=== PATIENT | female | born 1945 | race African-American/Black ===

== ENCOUNTER 2022-12-22 11:28 | Inpatient (IN) | payer MEDICARE, OTHER ==
[~2022-12-22] VITALS: Ht 170.2 cm; Wt 151.5 kg
[2022-12-22 12:25] LABS: HEMATOCRIT. 36.3 % (36.0-48.0); HEMOGLOBIN. 11.6 g/dL (12.0-16.0); MEAN CORPUSCULAR HEMOGLOBIN 25.3 pg (28.0-32.0); MEAN PLATELET VOLUME 9.8 fl (7.4-10.4); PLATELET 186 x1000/uL (130-400); RED BLOOD CELL COUNT 4.59 mill/uL (4.2-5.4); RED CELL DISTRIBUTION WIDTH 17.6 % (11.6-14.6)
[2022-12-22 12:31] LABS: CHLORIDE 103 mEq/L (98-107)
[2022-12-22 12:42] LABS: ETHANOL BLOOD < 10 mg/dL
[2022-12-22] MEDS ORDERED: VANCOMYCIN 1G PREMIX 200 ML IV ONE (12:45)
[2022-12-22] MEDS ORDERED: PIPERACILLIN/TAZ 3.375G PREMIX 50 ML IV ONE (12:45)
[2022-12-22 12:57] LABS: INR 1.2; PROTHROMBIN TIME 12.4 sec (9.6-11.0)
[2022-12-22 13:03] LABS: PLATELET ESTIMATE NORMAL
[2022-12-22] MEDS ORDERED: IOHEXOL-350 100 ML BOTTLE ONE (13:18)
[2022-12-22] MEDS ORDERED: LORAZEPAM 0.5MG TABLET PO PRN (14:00)
[2022-12-22] MEDS ORDERED: DOCUSATE SODIUM 100MG CAPSULE PO PRN (14:00)
[2022-12-22] MEDS ORDERED: IPRATROPIUM/ALBUTEROL 0.5-3(2.5)MG/3ML NEB HHN PRN (14:00)
[2022-12-22] MEDS ORDERED: ACETAMINOPHEN 325MG TABLET PO PRN (14:00)
[2022-12-22] MEDS ORDERED: ONDANSETRON HCL 4MG/2ML INJ IV PRN (14:00)
[2022-12-22] MEDS ORDERED: VANCOMYCIN 1.25GM PMX (XELLIA) 250 ML IV SCH (15:00)
[2022-12-22 15:48] VITALS: BP 138/77
[2022-12-22 16:01] VITALS: BP 138/77
[2022-12-22 20:00] VITALS: BP 119/64
[2022-12-22] MEDS: ACETAMINOPHEN 325MG TABLET PO PRN (22:42)
[2022-12-22] MEDS: PIPERACILLIN/TAZOBACTAM 3.375 G in DEXTROSE 5% WATER 50 ML IV SCH (23:03)
[2022-12-23] VITALS: BP 99/51
[2022-12-23 04:00] VITALS: BP 105/58
[2022-12-23] MEDS: PIPERACILLIN/TAZOBACTAM 3.375 G in DEXTROSE 5% WATER 50 ML IV SCH ×4 (06:21→23:01)
[2022-12-23 08:00] VITALS: BP 107/64
[2022-12-23 12:00] VITALS: BP 142/65
[2022-12-23] MEDS ORDERED: VANCOMYCIN 1.25GM PMX (XELLIA) 250 ML IV SCH (12:00)
[2022-12-23] MEDS: ENOXAPARIN 40MG/0.4ML SYR SUBCUT SCH ×2 (12:43→23:01)
[2022-12-23 16:00] VITALS: BP 106/54
[2022-12-23 16:14] LABS: HEMATOCRIT. 30.9 % (36.0-48.0); HEMOGLOBIN. 9.7 g/dL (12.0-16.0); MEAN CORPUSCULAR VOLUME 79.5 fL (81.0-99.0); MEAN PLATELET VOLUME 8.9 fl (7.4-10.4); PLATELET 156 x1000/uL (130-400); RED BLOOD CELL COUNT 3.89 mill/uL (4.2-5.4); RED CELL DISTRIBUTION WIDTH 18.1 % (11.6-14.6)
[2022-12-23] MEDS: ACETAMINOPHEN 325MG TABLET PO PRN (16:30)
[2022-12-23 17:14] LABS: CLARITY URINE CLOUDY (CLEAR); COLOR URINE DARK YELLOW (YELLOW); KETONES URINE TRACE (NEGATIVE); LEUKOCYTE ESTERASE URINE NEGATIVE (NEGATIVE); NITRITE URINE NEGATIVE (NEGATIVE); OCCULT BLOOD URINE NEGATIVE (NEGATIVE); PROTEIN URINE 1+ (NEGATIVE); UROBILINOGEN URINE 0.2 E.U./dL (0.2-1.0)
[2022-12-23 17:28] LABS: *AMPHETAMINES SCREEN URINE NEGATIVE (NEGATIVE); *BARBITURATES SCREEN URINE NEGATIVE (NEGATIVE); *BENZODIAZEPINES SCREEN URINE NEGATIVE (NEGATIVE); *COCAINE SCREEN URINE NEGATIVE (NEGATIVE); CANNABINOID URINE SCREEN NEGATIVE (NEGATIVE); METHADONE URINE SCREEN NEGATIVE (NEGATIVE); OPIATES URINE SCREEN NEGATIVE (NEGATIVE); PHENCYCLIDINE URINE SCREEN NEGATIVE (NEGATIVE)
[2022-12-23 18:22] LABS: PLATELET ESTIMATE NORMAL
[2022-12-23 20:00] VITALS: BP 107/65
[2022-12-24] VITALS: BP 114/60
[2022-12-24 04:00] VITALS: BP 130/76
[2022-12-24] MEDS: PIPERACILLIN/TAZOBACTAM 3.375 G in DEXTROSE 5% WATER 50 ML IV SCH (06:10)
[2022-12-24 08:00] VITALS: BP 135/60
[2022-12-24] MEDS: ENOXAPARIN 40MG/0.4ML SYR SUBCUT SCH (09:47)
[2022-12-24 12:00] VITALS: BP 131/76
[2022-12-24] MEDS ORDERED: CEFAZOLIN 1000MG PREMIX 50 ML IV SCH (12:00)
[2022-12-24] MEDS ORDERED: LIDOCAINE HCL 1% 10 MG/ML 10ML VIAL ONE (13:22)
[2022-12-24] MEDS: CEFAZOLIN 2000MG in DEXTROSE 5% WATER 100ML IV SCH ×2 (15:08→21:42)
[2022-12-24 16:00] VITALS: BP 130/74
[2022-12-24] MEDS: ENOXAPARIN 150MG/ML SYR SUBCUT SCH (18:58)
[2022-12-24 20:00] VITALS: BP 106/46
[2022-12-24] MEDS: PANTOT AC/MIN OIL/PET HY-PHL OINT (AQUAPHOR) TOP SCH (21:44)
[2022-12-24 22:03] LABS: MEAN CORPUSCULAR HEMOGLOBIN 25.6 pg (28.0-32.0); MEAN CORPUSCULAR VOLUME 80.3 fL (81.0-99.0); PLATELET 131 x1000/uL (130-400); RED BLOOD CELL COUNT 2.76 mill/uL (4.2-5.4); RED CELL DISTRIBUTION WIDTH 17.7 % (11.6-14.6)
[2022-12-24 22:14] LABS: HEMATOCRIT 22.1 % (36.0-48.0)
[2022-12-25] VITALS (11 sets, daily range): BP systolic 102–140; BP diastolic 46–79
[2022-12-25] MEDS ORDERED: WATER IV ONE (00:45)
[2022-12-25] MEDS ORDERED: DEXT 5% IV ONE (00:45)
[2022-12-25] MEDS ORDERED: MAGNESIUM SULFATE IV ONE (00:45)
[2022-12-25] MEDS ORDERED: MAGNESIUM 4 G PREMIX 100 ML IV NR (01:00)
[2022-12-25] MEDS: ACETAMINOPHEN 325MG TABLET PO PRN ×2 (04:02→21:02)
[2022-12-25] MEDS: CEFAZOLIN 2000MG in DEXTROSE 5% WATER 100ML IV SCH ×3 (05:25→21:02)
[2022-12-25] MEDS: ENOXAPARIN 150MG/ML SYR SUBCUT SCH (05:30)
[2022-12-25] MEDS: PANTOT AC/MIN OIL/PET HY-PHL OINT (AQUAPHOR) TOP SCH (08:23)
[2022-12-25 08:47] LABS: MEAN CORPUSCULAR HEMOGLOBIN 26.3 pg (28.0-32.0); MEAN PLATELET VOLUME 9.5 fl (7.4-10.4); PLATELET 87 x1000/uL (130-400); RED BLOOD CELL COUNT 2.43 mill/uL (4.2-5.4); RED CELL DISTRIBUTION WIDTH 17.3 % (11.6-14.6)
[2022-12-25 08:57] LABS: HEMATOCRIT. 19.4 % (36.0-48.0); HEMOGLOBIN. 6.4 g/dL (12.0-16.0)
[2022-12-25 09:10] LABS: CHLORIDE 103 mEq/L (98-107)
[2022-12-25 14:01] LABS: TOTAL IRON BINDING CAPACITY 221 ug/dL (250-450)
[2022-12-25 21:02] LABS: HEMATOCRIT 30.4 % (36.0-48.0)
[2022-12-25 22:15] LABS: PLATELET ESTIMATE DECREASED
[2022-12-26] VITALS: BP 133/73
[2022-12-26 04:00] VITALS: BP 151/84
[2022-12-26 08:00] VITALS: BP 140/76
[2022-12-26] MEDS: CEFAZOLIN 2000MG in DEXTROSE 5% WATER 100ML IV SCH ×3 (08:47→21:35)
[2022-12-26] MEDS: PANTOT AC/MIN OIL/PET HY-PHL OINT (AQUAPHOR) TOP SCH (08:58)
[2022-12-26] MEDS: FERROUS SULFATE 325MG TABLET PO SCH ×2 (11:50→18:16)
[2022-12-26 12:00] VITALS: BP 153/67
[2022-12-26 16:00] VITALS: BP 137/80
[2022-12-26 20:00] VITALS: BP 130/67
[2022-12-27] VITALS: BP 124/79
[2022-12-27 04:00] VITALS: BP 130/61
[2022-12-27 05:42] LABS: BASOPHILS % 0.6 % (0.0-2.0); EOSINOPHILS % 5.7 % (0.0-5.0); HEMATOCRIT. 29.6 % (36.0-48.0); HEMOGLOBIN. 9.9 g/dL (12.0-16.0); LYMPHOCYTES % 10.8 % (20.0-50.0); MEAN CORPUSCULAR HEMOGLOBIN 26.5 pg (28.0-32.0); MEAN CORPUSCULAR VOLUME 79.4 fL (81.0-99.0); MEAN PLATELET VOLUME 9.3 fl (7.4-10.4); MONOCYTES % 12.1 % (2.0-8.0); NEUTROPHILS % 70.8 % (40.0-76.0); PLATELET 195 x1000/uL (130-400); RED BLOOD CELL COUNT 3.73 mill/uL (4.2-5.4); RED CELL DISTRIBUTION WIDTH 17.8 % (11.6-14.6)
[2022-12-27 06:00] LABS: CHLORIDE 108 mEq/L (98-107)
[2022-12-27] MEDS: CEFAZOLIN 2000MG in DEXTROSE 5% WATER 100ML IV SCH ×3 (06:33→21:52)
[2022-12-27 08:00] VITALS: BP 162/79
[2022-12-27] MEDS: FERROUS SULFATE 325MG TABLET PO SCH ×2 (08:02→12:21)
[2022-12-27] MEDS: PANTOT AC/MIN OIL/PET HY-PHL OINT (AQUAPHOR) TOP SCH (08:02)
[2022-12-27 12:00] VITALS: BP 137/86
[2022-12-27] MEDS: SODIUM CHLORIDE 0.9% 1,000 ML IV SCH ×2 (12:22→19:50)
[2022-12-27 16:00] VITALS: BP 126/87
[2022-12-27 17:52] LABS: VITAMIN B12 SERUM 436 pg/mL (211-911)
[2022-12-27] MEDS: PANTOPRAZOLE SODIUM 40 MG/VIAL IV SCH (18:57)
[2022-12-27 19:33] LABS: FERRITIN 226 ng/mL (10-291)
[2022-12-27 20:00] VITALS: BP 171/78
[2022-12-27 21:12] LABS: HEMATOCRIT 30.1 % (36.0-48.0); HEMOGLOBIN 9.9 g/dL (12.0-16.0)
[2022-12-28] VITALS (7 sets, daily range): BP systolic 151–163; BP diastolic 70–90
[2022-12-28] MEDS: SODIUM CHLORIDE 0.9% 1,000 ML IV SCH ×2 (01:05→06:29)
[2022-12-28 02:14] LABS: HEMATOCRIT 29.9 % (36.0-48.0); HEMOGLOBIN 9.9 g/dL (12.0-16.0)
[2022-12-28] MEDS: PANTOPRAZOLE SODIUM 40 MG/VIAL IV SCH ×2 (03:46→17:18)
[2022-12-28 06:18] LABS: BASOPHILS % 0.6 % (0.0-2.0); EOSINOPHILS % 6.2 % (0.0-5.0); HEMATOCRIT. 29.9 % (36.0-48.0); HEMOGLOBIN. 9.9 g/dL (12.0-16.0); LYMPHOCYTES % 14.2 % (20.0-50.0); MEAN CORPUSCULAR HEMOGLOBIN 26.4 pg (28.0-32.0); MEAN PLATELET VOLUME 9.5 fl (7.4-10.4); MONOCYTES % 11.6 % (2.0-8.0); NEUTROPHILS % 67.4 % (40.0-76.0); PLATELET 220 x1000/uL (130-400); RED BLOOD CELL COUNT 3.73 mill/uL (4.2-5.4); RED CELL DISTRIBUTION WIDTH 17.9 % (11.6-14.6)
[2022-12-28] MEDS: CEFAZOLIN 2000MG in DEXTROSE 5% WATER 100ML IV SCH ×3 (06:28→23:03)
[2022-12-28 08:27] LABS: CHLORIDE 110 mEq/L (98-107)
[2022-12-28] MEDS: IRON SUCROSE COMPLEX 100 MG/5 ML ML IV SCH (10:03)
[2022-12-28] MEDS: PANTOT AC/MIN OIL/PET HY-PHL OINT (AQUAPHOR) TOP SCH (10:03)
[2022-12-28 16:45] LABS: HEMATOCRIT 33.2 % (36.0-48.0); HEMOGLOBIN 10.8 g/dL (12.0-16.0)
[2022-12-28] MEDS: CLONIDINE 0.1MG TABLET PO PRN (17:18)
[2022-12-28] MEDS: FOLIC ACID 1MG TABLET PO SCH (17:18)
[2022-12-28] MEDS ORDERED: IOHEXOL-300 100 ML BOTTLE ONE (23:16)
[2022-12-29] VITALS: BP 122/68
[2022-12-29 04:00] VITALS: BP 130/85
[2022-12-29] MEDS: PANTOPRAZOLE SODIUM 40 MG/VIAL IV SCH ×2 (04:21→17:00)
[2022-12-29] MEDS: CEFAZOLIN 2000MG in DEXTROSE 5% WATER 100ML IV SCH ×3 (06:47→21:08)
[2022-12-29 07:03] LABS: BASOPHILS % 0.6 % (0.0-2.0); EOSINOPHILS % 6.2 % (0.0-5.0); HEMATOCRIT. 34.2 % (36.0-48.0); HEMOGLOBIN. 11.1 g/dL (12.0-16.0); LYMPHOCYTES % 15.4 % (20.0-50.0); MEAN CORPUSCULAR HEMOGLOBIN 26.3 pg (28.0-32.0); MEAN CORPUSCULAR VOLUME 80.9 fL (81.0-99.0); MEAN PLATELET VOLUME 9.2 fl (7.4-10.4); MONOCYTES % 9.6 % (2.0-8.0); NEUTROPHILS % 68.2 % (40.0-76.0); PLATELET 210 x1000/uL (130-400); RED BLOOD CELL COUNT 4.23 mill/uL (4.2-5.4)
[2022-12-29 08:00] VITALS: BP 152/72
[2022-12-29] MEDS: IRON SUCROSE COMPLEX 100 MG/5 ML ML IV SCH (09:35)
[2022-12-29] MEDS: FOLIC ACID 1MG TABLET PO SCH (09:35)
[2022-12-29] MEDS: PANTOT AC/MIN OIL/PET HY-PHL OINT (AQUAPHOR) TOP SCH (09:36)
[2022-12-29 12:00] VITALS: BP_SYST 153; BP_SYST 155; BP_DIAS 82; BP_DIAS 87
[2022-12-29 16:00] VITALS: BP 153/82
[2022-12-29 20:00] VITALS: BP 159/88
[2022-12-30] VITALS (8 sets, daily range): BP systolic 112–195; BP diastolic 76–97
[2022-12-30] MEDS: PANTOPRAZOLE SODIUM 40 MG/VIAL IV SCH ×2 (03:08→15:54)
[2022-12-30] MEDS: CLONIDINE 0.1MG TABLET PO PRN ×2 (05:25→16:03)
[2022-12-30] MEDS: CEFAZOLIN 2000MG in DEXTROSE 5% WATER 100ML IV SCH ×3 (05:25→22:28)
[2022-12-30] MEDS: PANTOT AC/MIN OIL/PET HY-PHL OINT (AQUAPHOR) TOP SCH (09:06)
[2022-12-30] MEDS: FOLIC ACID 1MG TABLET PO SCH (09:06)
[2022-12-30] MEDS: IRON SUCROSE COMPLEX 100 MG/5 ML ML IV SCH (09:06)
[2022-12-30] MEDS ORDERED: HYDRALAZINE 20MG/ML VIAL IV NR (18:00)
[2022-12-31] VITALS: BP 174/73
[2022-12-31] MEDS: CLONIDINE 0.1MG TABLET PO PRN (02:50)
[2022-12-31] MEDS: PANTOPRAZOLE SODIUM 40 MG/VIAL IV SCH (03:52)
[2022-12-31 04:00] VITALS: BP 152/71
[2022-12-31] MEDS: CEFAZOLIN 2000MG in DEXTROSE 5% WATER 100ML IV SCH (05:09)
[2022-12-31 08:00] VITALS: BP 141/85
[2022-12-31] MEDS: PANTOT AC/MIN OIL/PET HY-PHL OINT (AQUAPHOR) TOP SCH (09:50)
[2022-12-31] MEDS: FOLIC ACID 1MG TABLET PO SCH (09:50)
== END 2022-12-31 11:00 | DRG 871 ==
LOC: ER 11:28 → EDBEDREQSVC 11:36 → EDBEDREQ 11:36 → 7EST 12:57 → EDBEDREQTM 12:59 → EDBEDREQ 12:59
PROVIDERS: ADMIT Internal Medicine; ATTEND Internal Medicine
PROC: 30233N1 Transfusion of Nonautologous Red Blood Cells into Peripheral Vein, Percutaneous Approach (ICD-10-PCS; principal; 2022-12-24)
PROC: 02HV33Z Insertion of Infusion Device into Superior Vena Cava, Percutaneous Approach (ICD-10-PCS; 2022-12-24)
PROC: B548ZZA Ultrasonography of Superior Vena Cava, Guidance (ICD-10-PCS; 2022-12-24)
PROC: 4A00X4Z Measurement of Central Nervous Electrical Activity, External Approach (ICD-10-PCS; 2022-12-24)
DX: A41.9 Sepsis, unspecified organism (principal); G93.41 Metabolic encephalopathy; Z68.43 Body mass index [BMI] 50.0-59.9, adult; I10 Essential (primary) hypertension; E66.01 Morbid (severe) obesity due to excess calories; D50.9 Iron deficiency anemia, unspecified; K56.41 Fecal impaction; M19.011 Primary osteoarthritis, right shoulder; I87.2 Venous insufficiency (chronic) (peripheral); I25.2 Old myocardial infarction; Z79.82 Long term (current) use of aspirin
CPT/HCPCS: 36415; 36573; 70496; 70498; 71045; 73030; 74177; 80048; 80053; 80305; 80320; 81003; 82140; 82270; 82607; 82728; 82746; 82962; 83540; 83550; 83605; 83735; 84145; 84484; 85014; 85018; 85025; 85027; 85044; 86850; 86900; 86920; 87077; 87186; 93005; 93306; 93970; 95816; 97162; 99291; C1725; C9113; J0360; J0690; J1650; J2543; J3370; J3475; J3490; J7030; J7060; P9016; Q9967; G0480

== ENCOUNTER 2023-02-06 15:22 | Emergency (ER) | payer MEDICARE, MEDICAID ==
[~2023-02-06] VITALS: Ht 170.2 cm; Wt 159.0 kg
[~2023-02-06 15:22] MED LIST: ASPI-1073 PO; CALC-959 MT; CARV25TA47 PO; CLON0.1T PO; DOCU-138 PO; FERR325T6 PO; FOLI-43 PO; FURO40TA5 PO; LISI20TA31 PO; PROT40 PO; TOPUD PO
[2023-02-06] MEDS ORDERED: IBUPROFEN 400MG TABLET PO ONE (16:15)
[2023-02-06] MEDS ORDERED: ACETAMINOPHEN 325MG TABLET PO ONE (16:15)
[2023-02-06 16:35] LABS: BASOPHILS % 0.9 % (0.0-2.0); EOSINOPHILS % 1.1 % (0.0-5.0); HEMATOCRIT. 32.3 % (36.0-48.0); HEMOGLOBIN. 10.6 g/dL (12.0-16.0); LYMPHOCYTES % 11.4 % (20.0-50.0); MEAN CORPUSCULAR VOLUME 79.4 fL (81.0-99.0); MEAN PLATELET VOLUME 8.1 fl (7.4-10.4); NEUTROPHILS % 79.6 % (40.0-76.0); PLATELET 488 x1000/uL (130-400); RED BLOOD CELL COUNT 4.07 mill/uL (4.2-5.4); RED CELL DISTRIBUTION WIDTH 18.8 % (11.6-14.6)
[2023-02-06 16:44] LABS: CHLORIDE 103 mEq/L (98-107)
[2023-02-07 10:25] VITALS: BP 128/76
== END 2023-02-07 10:38 | disposition home or self-care (01) ==
LOC: ER 15:22
DX: R51.9 Headache, unspecified (principal); R42 Dizziness and giddiness; D64.9 Anemia, unspecified; K21.9 Gastro-esophageal reflux disease without esophagitis; I10 Essential (primary) hypertension; Z79.899 Other long term (current) drug therapy
CPT/HCPCS: 36415; 80053; 84484; 85025; 99284

== ENCOUNTER 2023-07-09 11:49 | Inpatient (IN) | payer MEDICARE, MEDICAID ==
[~2023-07-09] VITALS: Ht 167.6 cm; Wt 134.3 kg
[~2023-07-09 11:49] MED LIST changes: +AMLO5TAB88 PO; +APIX2.5T PO; -CALC-959 MT; +CALC-959 PO; -PROT40 PO; -TOPUD PO
[2023-07-09 11:55] VITALS: O2SAT 100
[2023-07-09] MEDS ORDERED: SODIUM CHLORIDE 0.9% 1,000 ML IV ONE ×2 (12:00→15:45)
[2023-07-09] MEDS ORDERED: CLON-493 PO (12:10)
[2023-07-09] MEDS ORDERED: APIX5TAB PO (12:10)
[2023-07-09] MEDS ORDERED: TRAM50TA3 PO (12:10)
[2023-07-09] MEDS ORDERED: PANT40TA51 PO (12:10)
[2023-07-09] MEDS ORDERED: DOCU-150 PO (12:10)
[2023-07-09] MEDS ORDERED: FERR325T6 PO (12:10)
[2023-07-09] MEDS ORDERED: MIDO5TAB4 PO (12:10)
[2023-07-09] MEDS ORDERED: ASCO500C6 PO (12:10)
[2023-07-09] MEDS ORDERED: CALC-940 PO (12:10)
[2023-07-09] MEDS ORDERED: TOPUD PO (12:10)
[2023-07-09] MEDS ORDERED: ASPI-1497 PO (12:10)
[2023-07-09] MEDS ORDERED: MULT-230 PO (12:10)
[2023-07-09 12:42] LABS: HEMATOCRIT. 33.2 % (36.0-48.0); HEMOGLOBIN. 10.2 g/dL (12.0-16.0); MEAN CORPUSCULAR HEMOGLOBIN 25.1 pg (28.0-32.0); MEAN CORPUSCULAR HGB CONC 30.8 g/dL (31.0-37.0); MEAN CORPUSCULAR VOLUME 81.5 fL (81.0-99.0); MEAN PLATELET VOLUME 8.9 fl (7.4-10.4); PLATELET 310 x1000/uL (130-400); RED BLOOD CELL COUNT 4.08 mill/uL (4.2-5.4); RED CELL DISTRIBUTION WIDTH 18.2 % (11.6-14.6); WHITE BLOOD COUNT 3.4 x1000/uL (4.5-11.0)
[2023-07-09 12:51] LABS: DIFFERENTIAL COMMENT 1
[2023-07-09 13:01] LABS: INR 1.1; PARTIAL THROMBOPLASTIN TIME 21.7 sec (23.4-31.0); PROTHROMBIN TIME 11.5 sec (9.6-11.0)
[2023-07-09 13:08] LABS: AMMONIA 65 uMol/L (<32)
[2023-07-09 13:15] LABS: CHLORIDE 108 mEq/L (98-107); INDEX HEMOLYSI 3 (1-3); INDEX ICTERIC 1 (1-4); INDEX LIPEMIC 1 (1-3); POTASSIUM 3.9 mEq/L (3.5-5.1); SODIUM 140 mEq/L (136-145)
[2023-07-09 13:28] LABS: ACETAMINOPHEN <2 ug/mL ug/mL (10-30); ALANINE AMINOTRANSFERASE 12 IU/L (13-61); ALBUMIN 2.1 g/dL (3.4-5.0); ASPARTATE AMINOTRANSFERASE 23 IU/L (15-37); BILIRUBIN TOTAL 0.2 mg/dL (0.1-1.0); CALCIUM 8.2 mg/dL (8.5-10.1); CARBON DIOXIDE 20 mEq/L (21-32); CREATINE KINASE 38 IU/L (26-192); ETHANOL BLOOD < 10 mg/dL (<10); GLUCOSE 177 mg/dL (70-105); NT PRO B-TYPE NATRIURETIC PEP 363 pg/mL (5-125); PROTEIN TOTAL 7.3 g/dL (6.0-8.3); UREA NITROGEN BLOOD 17 mg/dL (7-21)
[2023-07-09 13:49] LABS: TROPONIN I HIGH SENSITIVITY 11 ng/L (<54)
[2023-07-09 13:52] LABS: LACTIC ACID 5.8 mmol/L (0.4-2.0)
[2023-07-09 14:09] LABS: ANISOCYTOSIS 1+; PLATELET ESTIMATE NORMAL
[2023-07-09 14:18] LABS: BG BASE EXCESS -3.7 mmol/L (-2.0-2.0); BG CARBOXYHEMOGLOBIN 0.2 % (0.5-1.5); BG DEOXYHEMOGLOBIN 2.8 % (0.0-5.0); BG FRACTION INSPIRED OXYGEN 32; BG HCO3 ACT 21.1 mmol/L (22.0-26.0); BG METHEMOGLOBIN 0.1 % (0.0-1.5); BG OXYGEN SATURATION 97.2 % (92.0-98.5); BG OXYHEMOGLOBIN 96.9 % (94.0-97.0); BG PCO2 37.5 mmHg (35.0-45.0); BG PH 7.369 (7.350-7.450); BG PO2 100.7 mmHg (75.0-100.0); BG SAMPLE SITE LEFT RADIAL; BG TOTAL HEMOGLOBIN 11.5 g/dL (12.0-18.0); BG VENT MODE NASAL CANNULA
[2023-07-09 14:49] LABS: CLARITY URINE TURBID (CLEAR); COLOR URINE YELLOW (YELLOW); GLUCOSE URINE NEGATIVE (NEGATIVE); KETONES URINE NEGATIVE (NEGATIVE); LEUKOCYTE ESTERASE URINE 3+ (NEGATIVE); NITRITE URINE NEGATIVE (NEGATIVE); OCCULT BLOOD URINE 3+ (NEGATIVE); PROTEIN URINE 3+ (NEGATIVE); SPECIFIC GRAVITY URINE 1.014 (1.005-1.030)
[2023-07-09] MEDS ORDERED: CEFEPIME 2,000 MG in DEXT 5% WATER 100 ML IV SCH (15:00)
[2023-07-09 15:07] LABS: SQUAMOUS EPITHELIAL CELL URINE RARE /lpf (RARE/1+); WBC URINE TNTC /hpf (0-2)
[2023-07-09 15:08] LABS: BACTERIA URINE 4+; RBC URINE 15-25 /hpf (0-2)
[2023-07-09 15:27] LABS: *AMPHETAMINES SCREEN URINE NEGATIVE (NEGATIVE); *BARBITURATES SCREEN URINE NEGATIVE (NEGATIVE); *BENZODIAZEPINES SCREEN URINE NEGATIVE (NEGATIVE); *COCAINE SCREEN URINE NEGATIVE (NEGATIVE); CANNABINOID URINE SCREEN NEGATIVE (NEGATIVE); ECSTASY MDMA SCREEN URINE NEGATIVE (NEGATIVE); METHADONE URINE SCREEN NEGATIVE (NEGATIVE); OPIATES URINE SCREEN NEGATIVE (NEGATIVE); PHENCYCLIDINE URINE SCREEN NEGATIVE (NEGATIVE)
[2023-07-09 16:47] VITALS: BP 110/77; PULSE 109; RESP 18; TEMP 99.9
[2023-07-09] MEDS ORDERED: HYDROCODONE/ACETAMINOPHEN 5/325MG TABLET PO PRN (19:00)
[2023-07-09 20:00] VITALS: BP_SYST 108; BP_SYST 130; BP_DIAS 68; BP_DIAS 86; PULSE 103; PULSE 110; RESP 16; RESP 18; TEMP 97.4; TEMP 98.9
[2023-07-09 21:11] LABS: BASOPHILS % 0.3 % (0.0-2.0); DIFFERENTIAL COMMENT 0; EOSINOPHILS % 0.1 % (0.0-5.0); HEMATOCRIT. 32.6 % (36.0-48.0); HEMOGLOBIN. 10.4 g/dL (12.0-16.0); LYMPHOCYTES % 8.2 % (20.0-50.0); MEAN CORPUSCULAR HGB CONC 31.8 g/dL (31.0-37.0); MEAN CORPUSCULAR VOLUME 78.8 fL (81.0-99.0); MEAN PLATELET VOLUME 8.7 fl (7.4-10.4); NEUTROPHILS % 87.4 % (40.0-76.0); PLATELET 309 x1000/uL (130-400); RED BLOOD CELL COUNT 4.14 mill/uL (4.2-5.4); RED CELL DISTRIBUTION WIDTH 17.3 % (11.6-14.6); WHITE BLOOD COUNT 13.6 x1000/uL (4.5-11.0)
[2023-07-09 21:26] LABS: POTASSIUM 4.6 mEq/L (3.5-5.1)
[2023-07-09 21:31] LABS: CALCIUM 8.1 mg/dL (8.5-10.1); CREATININE 1.1 mg/dL (0.6-1.3)
[2023-07-10] VITALS: BP 138/83; PULSE 107; RESP 17; TEMP 97.3
[2023-07-10 04:00] VITALS: BP 130/86; PULSE 103; RESP 16; TEMP 97.9
[2023-07-10] MEDS: PANTOPRAZOLE 40MG DR TABLET PO SCH (06:32)
[2023-07-10] MEDS: APIXABAN 2.5 MG TABLET PO SCH ×2 (06:32→17:49)
[2023-07-10] MEDS: ACETAMINOPHEN 325MG TABLET PO PRN ×2 (06:33→17:49)
[2023-07-10 08:00] VITALS: BP 131/68; PULSE 99; RESP 20; TEMP 97.9
[2023-07-10 12:00] VITALS: BP 128/71; PULSE 98; RESP 20; TEMP 98.1
[2023-07-10 16:00] VITALS: BP 139/83; PULSE 98; RESP 20; TEMP 98.6
[2023-07-10] MEDS: LISINOPRIL 10MG TABLET PO SCH (17:49)
[2023-07-10] MEDS: CEFEPIME 2,000 MG in DEXT 5% WATER 100 ML IV SCH (18:37)
[2023-07-10] MEDS ORDERED: LORAZEPAM 2MG/ML CPJ IV NR (19:45)
[2023-07-10 20:00] VITALS: BP 116/80; PULSE 94; RESP 17; TEMP 97.7
[2023-07-11] VITALS: BP 138/72; PULSE 91; RESP 17; TEMP 97.8
[2023-07-11 04:00] VITALS: BP 133/72; PULSE 92; RESP 17; TEMP 97.5
[2023-07-11] MEDS: ACETAMINOPHEN 325MG TABLET PO PRN ×2 (04:51→09:21)
[2023-07-11] MEDS: CEFEPIME 2,000 MG in DEXT 5% WATER 100 ML IV SCH (05:18)
[2023-07-11 08:00] VITALS: BP 126/62; PULSE 88; RESP 20; TEMP 98.4
[2023-07-11] MEDS: PANTOPRAZOLE 40MG DR TABLET PO SCH (09:16)
[2023-07-11] MEDS: APIXABAN 2.5 MG TABLET PO SCH ×2 (09:16→18:45)
[2023-07-11 12:00] VITALS: BP 137/81; PULSE 82; RESP 22; TEMP 98
[2023-07-11] MEDS ORDERED: MEROPENEM 1,000 MG in SODIUM CHLORIDE 0.9% 100 ML IV SCH (14:00)
[2023-07-11 16:16] LABS: BASOPHILS % 1.3 % (0.0-2.0); DIFFERENTIAL COMMENT 0; EOSINOPHILS % 9.7 % (0.0-5.0); HEMATOCRIT. 26.1 % (36.0-48.0); HEMOGLOBIN. 8.2 g/dL (12.0-16.0); LYMPHOCYTES % 27.9 % (20.0-50.0); MEAN CORPUSCULAR HGB CONC 31.6 g/dL (31.0-37.0); MEAN CORPUSCULAR VOLUME 79.3 fL (81.0-99.0); MONOCYTES % 8.6 % (2.0-8.0); NEUTROPHILS % 52.5 % (40.0-76.0); PLATELET 251 x1000/uL (130-400); RED BLOOD CELL COUNT 3.29 mill/uL (4.2-5.4); RED CELL DISTRIBUTION WIDTH 17.9 % (11.6-14.6); WHITE BLOOD COUNT 4.8 x1000/uL (4.5-11.0)
[2023-07-11 16:20] LABS: CHLORIDE 106 mEq/L (98-107); INDEX HEMOLYSI 1 (1-3); INDEX ICTERIC 1 (1-4); INDEX LIPEMIC 1 (1-3); SODIUM 137 mEq/L (136-145)
[2023-07-11 16:28] LABS: ALANINE AMINOTRANSFERASE 18 IU/L (13-61); ALBUMIN 2.2 g/dL (3.4-5.0); ASPARTATE AMINOTRANSFERASE 25 IU/L (15-37); BILIRUBIN TOTAL 0.4 mg/dL (0.1-1.0); CALCIUM 8.5 mg/dL (8.5-10.1); CARBON DIOXIDE 26 mEq/L (21-32); CREATININE 0.8 mg/dL (0.6-1.3); GLUCOSE 111 mg/dL (70-105); PROTEIN TOTAL 7.4 g/dL (6.0-8.3); UREA NITROGEN BLOOD 18 mg/dL (7-21)
[2023-07-11 18:00] VITALS: BP 128/72; PULSE 90; RESP 20; TEMP 98.7
[2023-07-11] MEDS: LISINOPRIL 10MG TABLET PO SCH (18:45)
== END 2023-07-11 19:00 | DRG 871 ==
LOC: ER 11:49 → 8WST 15:06
PROVIDERS: ADMIT Internal Medicine; ATTEND Internal Medicine
PROC: 5A09357 Assistance with Respiratory Ventilation, Less than 24 Consecutive Hours, Continuous Positive Airway Pressure (ICD-10-PCS; principal; 2023-07-10)
DX: A41.9 Sepsis, unspecified organism (principal); G93.41 Metabolic encephalopathy; N39.0 Urinary tract infection, site not specified; E72.20 Disorder of urea cycle metabolism, unspecified; Z68.42 Body mass index [BMI] 45.0-49.9, adult; E66.9 Obesity, unspecified; G40.901 Epilepsy, unspecified, not intractable, with status epilepticus; I11.0 Hypertensive heart disease with heart failure; I50.9 Heart failure, unspecified; K21.9 Gastro-esophageal reflux disease without esophagitis; R26.9 Unspecified abnormalities of gait and mobility; E66.01 Morbid (severe) obesity due to excess calories; F44.4 Conversion disorder with motor symptom or deficit; D50.9 Iron deficiency anemia, unspecified; R65.20 Severe sepsis without septic shock; Z74.01 Bed confinement status; Z86.718 Personal history of other venous thrombosis and embolism; Z86.73 Personal history of transient ischemic attack (TIA), and cerebral infarction without residual deficits; Z87.891 Personal history of nicotine dependence
CPT/HCPCS: 36415; 36600; 70551; 71045; 80048; 80053; 80305; 80307; 80320; 80329; 81003; 82140; 82375; 82550; 82805; 83605; 83880; 84145; 84443; 84484; 85025; 86850; 86900; 87077; 87186; 93005; 99291; J0692; J2185; J7030; J7050; J7060; G0480